=== PATIENT | male | born 1985 | race Caucasian/White ===

== ENCOUNTER → 2017-08-03 | Outpatient (REF) | payer OTHER ==
[2017-08-03 11:38] LABS: SEMEN APPEARANCE OPAQUE (OPAQUE); SEMEN VISCOSITY LIQUID (LIQUID); SEMEN pH 8.5 (7.0-8.0); SPERM CONCENTRATION 173.4 M/ml (>=15.0); WBC CONCENTRATION >1 M/ml (<=1 M/ml)
[2017-08-03 11:39] LABS: IMMOTILITY 66 %; NON PROGRESSIVE MOTILITY (c) 6 %; PROGRESSIVE MOTILITY (a) 28 % (>=32); TOTAL MOTILITY 34 % (>=40)
[2017-08-03 11:41] LABS: % NORMAL FORMS 6 % (>=4); SPERM# 346.8 M/Ejac (>=39); TOTAL FUNCTIONAL 14.3 M/Ejac.; TOTAL PROGRESSIVE SPERM 97.9 M/Ejac.
== END ==
LOC: M LAB REF 11:21
DX: Z31.41 Encounter for fertility testing (principal)
CPT/HCPCS: 89320

== ENCOUNTER 2021-08-22 14:15 | Inpatient (IN) | payer OTHER ==
[~2021-08-22] VITALS: Ht 172.7 cm; Wt 77.8 kg
[2021-08-22] MEDS ORDERED: NS 1,000 ML IV ONE (14:40)
[2021-08-22 14:50] LABS: BASO % 0.2 % (0.0-1.0); HEMATOCRIT 43.7 % (42.0-52.0); LYMPH # 0.4 10^3/uL (1.5-5.0); LYMPH % 4.5 % (24.0-44.0); MEAN CORPUSCULAR HEMOGLOBIN 28.3 pg (27.0-33.0); MEAN CORPUSCULAR HGB CONC 34.3 g/dl (32.0-36.5); MEAN CORPUSCULAR VOLUME 82.5 fl (80.0-96.0); MONO # 0.2 10^3/uL (0.0-0.8); MONO % 1.7 % (2.0-8.0); NEUTROPHILS # 8.4 10^3/uL (1.5-8.5); NEUTROPHILS % 93.2 % (36.0-66.0); PLATELET COUNT, AUTOMATED 164 10^3/uL (150-450)
[2021-08-22 15:06] LABS: ACETAMINOPHEN LEVEL < 2.0 UG/ML (10.0-30.0); ALBUMIN 3.9 GM/DL (3.2-5.2); ALT/SGPT 46 U/L (12-78); BILIRUBIN,DIRECT < 0.1 MG/DL (0.0-0.2); BILIRUBIN,TOTAL 0.7 MG/DL (0.2-1.0); BLOOD UREA NITROGEN 16 MG/DL (7-18); CALCIUM LEVEL 8.4 MG/DL (8.5-10.1); CARBON DIOXIDE LEVEL 28 MEQ/L (21-32); CHLORIDE LEVEL 105 MEQ/L (98-107); CREATININE FOR GFR 1.33 MG/DL (0.70-1.30); ETHYL ALCOHOL (ETHANOL) < 0.003 % (0.000-0.010); GLOMERULAR FILTRATION RATE > 60.0 (>60); GLUCOSE, FASTING 213 MG/DL (70-100); POTASSIUM SERUM 4.4 MEQ/L (3.5-5.1); SALICYLATE LEVEL < 1.7 MG/DL (5.0-30.0); SODIUM LEVEL 138 MEQ/L (136-145); TOTAL PROTEIN 6.7 GM/DL (6.4-8.2)
[2021-08-22 17:21] LABS: AMPHETAMINES LEVEL URINE NEGATIVE (NEGATIVE); BARBITURATES URINE NEGATIVE (NEGATIVE); BENZODIAZEPINES URINE NEGATIVE (NEGATIVE); CANNABINOIDS URINE NEGATIVE (NEGATIVE); COCAINE METABOLITE URINE NEGATIVE (NEGATIVE); METHADONE URINE NEGATIVE (NEGATIVE); OPIATES URINE NEGATIVE (NEGATIVE); PHENCYCLIDINE URINE NEGATIVE (NEGATIVE)
[2021-08-22] MEDS ORDERED: FLUO20CA22 PO (21:46)
[2021-08-22] MEDS ORDERED: FLUO-96 PO (21:46)
[2021-08-22] MEDS ORDERED: HOME MED LIST COMPLETE! XX SCH (21:50)
[2021-08-23 00:59] LABS: RSV AMPLIFICATION NEGATIVE (NEGATIVE)
[2021-08-23] MEDS ORDERED: OLANZapine ORAL DISINTEGRATING TAB 5MG PO PRN (02:05)
[2021-08-23] MEDS ORDERED: MOM 30ML SUSPENSION UDC PO PRN (02:05)
[2021-08-23] MEDS ORDERED: ACETAMINOPHEN TAB 650MG DOSE (2X325MG) PO PRN (02:05)
[2021-08-23 02:50] VITALS: BP 96/65
[2021-08-23 10:07] LABS: HEMOGLOBIN A1c 5.2 %
[2021-08-23 18:08] VITALS: BP 138/86
[2021-08-23] MEDS: traZODone 50 MG TAB PO PRN (20:20)
[2021-08-23] MEDS ORDERED: FLUoxetine 20 MG CAP PO SCH (21:00)
[2021-08-24 06:32] VITALS: BP 104/57
[2021-08-24] MEDS: traZODone 50 MG TAB PO PRN (21:07)
[2021-08-24] MEDS: FLUoxetine 20 MG CAP PO SCH (21:07)
[2021-08-25 06:27] VITALS: BP 126/69
[2021-08-25] MEDS: buPROPion **XL** TABLET 150MG (WELLBUTRIN XL) PO SCH (11:20)
[2021-08-25 18:58] VITALS: BP 124/81
[2021-08-25] MEDS: FLUoxetine 20 MG CAP PO SCH (20:12)
[2021-08-25] MEDS: traZODone 50 MG TAB PO PRN (20:12)
[2021-08-26 06:54] VITALS: BP 132/75
[2021-08-26] MEDS: buPROPion **XL** TABLET 150MG (WELLBUTRIN XL) PO SCH (08:22)
[2021-08-26 19:48] VITALS: BP 143/79
[2021-08-26] MEDS: FLUoxetine 20 MG CAP PO SCH (21:03)
[2021-08-26] MEDS: traZODone 50 MG TAB PO PRN (21:03)
[2021-08-27 07:01] VITALS: BP 116/53
[2021-08-27] MEDS: buPROPion **XL** TABLET 150MG (WELLBUTRIN XL) PO SCH (09:21)
[2021-08-27 20:21] VITALS: BP 147/73
[2021-08-27] MEDS: traZODone 50 MG TAB PO PRN (20:27)
[2021-08-27] MEDS: FLUoxetine 20 MG CAP PO SCH (20:27)
[2021-08-28 06:56] VITALS: BP 127/68
[2021-08-28] MEDS: buPROPion **XL** TABLET 150MG (WELLBUTRIN XL) PO SCH (08:26)
[2021-08-28] MEDS ORDERED: buPROPion **XL** TABLET 150MG (WELLBUTRIN XL) PO ONE (09:00)
[2021-08-28] MEDS: MAALOX 30 ML SUSP *UDC PO PRN (16:01)
[2021-08-28 16:22] VITALS: BP 138/85
[2021-08-28] MEDS: traZODone 50 MG TAB PO PRN (20:22)
[2021-08-28] MEDS: FLUoxetine 20 MG CAP PO SCH (20:22)
[2021-08-29] MEDS: MAALOX 30 ML SUSP *UDC PO PRN (03:37)
[2021-08-29 06:19] VITALS: BP 138/69
[2021-08-29] MEDS ORDERED: TRAZ-252 PO (08:26)
[2021-08-29] MEDS ORDERED: FLUO40CA PO (08:26)
[2021-08-29] MEDS ORDERED: WELLTAB40 PO (08:26)
[2021-08-29] MEDS ORDERED: buPROPion **XL** TABLET 150MG (WELLBUTRIN XL) PO SCH (09:00)
== END 2021-08-29 12:17 | disposition home or self-care (01) | DRG 885 ==
LOC: EDBD 14:15 → M ED 14:15 → M ED INP 14:16 → M PSY 08-23 02:50
PROVIDERS: ADMIT Student in an Organized Health Care Education/Training Program; ATTEND Student in an Organized Health Care Education/Training Program
DX: F33.1 Major depressive disorder, recurrent, moderate (principal); F17.220 Nicotine dependence, chewing tobacco, uncomplicated; M25.561 Pain in right knee; Z87.81 Personal history of (healed) traumatic fracture; Z63.0 Problems in relationship with spouse or partner; Z79.899 Other long term (current) drug therapy; Z87.891 Personal history of nicotine dependence; Z81.8 Family history of other mental and behavioral disorders

== ENCOUNTER 2023-11-20 21:41 | Emergency (ER) | payer OTHER ==
[~2023-11-20] VITALS: Ht 177.8 cm; Wt 82.2 kg
[~2023-11-20 21:41] MED LIST: FLUO-365 PO; FLUO-96 PO; FLUO40CA PO; TRAZ-252 PO; WELLTAB40 PO
[2023-11-20] MEDS ORDERED: TOPI100T9 (22:06)
[2023-11-21] MEDS: TETRACAINE 0.5% OPHTH SOLN 4ML OD ONE (01:10)
[2023-11-21] MEDS: FLUORESCEIN OPHTH 1MG STRIP OD ONE (01:10)
[2023-11-21] MEDS ORDERED: ERYTHROMYCIN OPHTH OINT OD ONE (01:25)
[2023-11-21] MEDS ORDERED: IBUPROFEN 600MG TAB PO ONE (01:25)
[2023-11-21] MEDS ORDERED: IBUP-1022 PO (01:31)
[2023-11-21] MEDS ORDERED: ERYT5OIN25 OP (01:31)
[2023-11-21 01:37] VITALS: BP 147/84; TEMP 97.8; O2SAT 97
== END 2023-11-21 01:55 | disposition home or self-care (01) ==
LOC: M ED 21:41
DX: S05.01XA Injury of conjunctiva and corneal abrasion without foreign body, right eye, initial encounter (principal); Y92.9 Unspecified place or not applicable; Y93.9 Activity, unspecified; Y99.9 Unspecified external cause status; J45.909 Unspecified asthma, uncomplicated; Z79.1 Long term (current) use of non-steroidal anti-inflammatories (NSAID); Z79.2 Long term (current) use of antibiotics